=== PATIENT | female | born 1975 | race Caucasian/White ===

== ENCOUNTER → 2018-04-21 | Outpatient (CLI) | payer OTHER ==
--- NOTE | 2018-04-21 13:40 | Diagnostic Imaging Report ---
Indication: Left foot pain AP, oblique, and lateral views of the left foot are obtained. No fracture or acute bony abnormality is seen. There is plantar calcaneal spurring. Joint spaces are unremarkable. Impression: No acute abnormality of left foot. Some plantar calcaneal spurring is noted. Dictated by: Dictated on workstation # [id number]
== END ==
LOC: RAD FS 12:54
PROVIDERS: ATTEND Nurse Practitioner
DX: M79.672 Pain in left foot (principal)
CPT/HCPCS: 73630

== ENCOUNTER → 2021-11-13 | Outpatient (CLI) | payer OTHER ==
[~2021-11-13] MED LIST: ATOR20TA66 PO; ERGO1250 PO; GABA800T10 PO; LISI5TAB20 PO; MELO15TA39 PO; NRT10C PO; OLOP5DRO26 OP; PANT20TA18 PO; TRAM50TA3 PO
== END ==
LOC: PREOP 05:29
PROVIDERS: ATTEND Surgery
DX: Z01.818 Encounter for other preprocedural examination (principal)

== ENCOUNTER 2021-11-20 09:10 | Day surgery (SDC) | payer OTHER ==
[~2021-11-20] VITALS: Ht 154 cm; Wt 77.2 kg
[2021-11-20] VITALS (12 sets, daily range): BP systolic 119–158; BP diastolic 64–80
--- NOTE | 2021-11-20 09:33 | Progress Note-Pre Operative ---
Pre-Operative Progress Note Date of Available H&P: Nov 03, 2021 Date H&P Reviewed: Nov 20, 2021 Time H&P Reviewed: 09:32 History & Physical: H&P Reviewed, Patient Examed, No changes noted Pre-Operative Diagnosis: cholelithiasis ADRIAN ENRIQUEZ DO Nov 20, 2021 09:32
[2021-11-20] MEDS ORDERED: BUP/EPI 0.5% 1:200,000 (MARCAINE) 10ML VIAL IJ ONE ×2 (09:50→10:37)
[2021-11-20] MEDS ORDERED: proPOfol 200 MG/20 ML (DIPRIVAN) VIAL IV ONE (09:55)
[2021-11-20] MEDS ORDERED: ROCURONIUM 10 MG/ML 5 ML SYRINGE IV ONE (09:55)
[2021-11-20] MEDS ORDERED: fentaNYL INJ 100 MCG/2 ML AMP ONE (09:55)
[2021-11-20] MEDS ORDERED: LIDOCAINE PF 2% 5 ML (XYLOCAINE) VIAL ONE (09:55)
[2021-11-20] MEDS ORDERED: MIDAZOLAM 2 MG/2 ML (VERSED) VIAL ONE (09:55)
[2021-11-20] MEDS ORDERED: SEVOFLURANE (ULTANE) 15 ML INHAL SOLN ONE (09:55)
[2021-11-20] MEDS ORDERED: ONDANSETRON 4 MG/2 ML (SDV) Z0FRAN ONE ×2 (09:55)
[2021-11-20] MEDS ORDERED: FAMOTIDINE 20MG/2ML IV (PEPCID) ONE (09:56)
[2021-11-20] MEDS ORDERED: CEFUROXIME 1.5 GM/15 ML (ZINACEF) VIAL ONE (09:56)
[2021-11-20] MEDS ORDERED: NS (IVPB) 100 ML ONE (09:56)
[2021-11-20] MEDS ORDERED: CEFUROXIME INJECTION 1,500 MG in NS (IVPB) 50 ML IV ONE (10:00)
[2021-11-20] MEDS ORDERED: LACTATED RINGERS 1,000 ML IV PRN (10:00)
[2021-11-20] MEDS ORDERED: FAMOTIDINE 20MG/2ML IV (PEPCID) IV ONE (10:00)
[2021-11-20] MEDS ORDERED: ONDANSETRON 4 MG/2 ML (SDV) Z0FRAN IV ONE (10:00)
[2021-11-20] MEDS ORDERED: IOHEXOL 300 MG/ML 30 ML (OMNIPAQUE 300) VIAL INJ ONE (10:45)
[2021-11-20] MEDS ORDERED: GLYCOPYRROLATE 0.2 MG/ML (ROBINUL) 2 ML VIAL ONE (10:58)
[2021-11-20] MEDS ORDERED: NEOSTIGMINE (BLOXIVERZ ) 1 MG/1ML 10 ML VIAL ONE (10:58)
--- NOTE | 2021-11-20 11:17 | Anesthesia-General Post-Op ---
General Patient Condition Mental Status/LOC: Same as Preop Cardiovascular: Satisfactory Nausea/Vomiting: Absent Respiratory: Satisfactory Pain: Controlled Complications: Absent Post Op Complications Complications None Follow Up Care/Instructions Patient Instructions None needed. Anesthesia/Patient Condition Patient Condition Patient is doing well, no complaints, stable vital signs, no apparent adverse anesthesia problems. No complications reported per nursing. MILI LANDAVERDE CRNA Nov 20, 2021 11:17
[2021-11-20] MEDS ORDERED: DOCU-143 PO (11:19)
[2021-11-20] MEDS ORDERED: ACHD5005 PO (11:19)
--- NOTE | 2021-11-20 11:21 | Discharge Inst-Simple/Standard ---
Discharge Inst-Standard Discharge Medications New, Converted or Re-Newed RX: Transmitted to Pharmacy Patient Instructions/Follow Up Plan of Care/Instructions/FU: 2 weeks Adelaida Activity as Tolerated: No Discharge Diet: Regular Diet Other Inst to Patient Follow up Appt: Make appointment for 2 weeks. Instructions: No lifting greater than 10 pounds. No strenuous activity. May shower in 24 hours, no tub bath or soaking. Use incentive spirometer at home as directed. No Smoking Skin/Wound Care: You have special glue over incision, it will fall off on it's own. Symptoms to Report: Appetite Changes, Extremity Discoloration, Numbness/Tingling, Swelling Increased, Bleeding Excessive, Eyesight Changes, Pain Increased, Urine Color Change, Constipation(Persistent), Fever over 101 degree F, Pain/Pressure in chest, Urinating Difficulty, Cough Up/Vomit Blood, Heart Beat Irreg/Pounding, Pain/Pressure in jaw, Vaginal Bleeding Increase, Cramps in feet or legs, Lightheadedness, Pain/Pressure in shoulder, Diarrhea(Persistent), Memory Changes Suddenly, Questions/Concerns, Weight gain consecutive days, Dizziness/Fainting, Nausea/Vomiting, Shortness of Breath, Weight gain over 2 pounds. If eyes or skin turn yellow notify physician. If questions or concerns contact your physician Or seek help at emergency department. ADRIAN ENRIQUEZ DO Nov 20, 2021 11:21
--- NOTE | 2021-11-20 11:22 | Progress Note-Post Operative ---
Post-Operative Progess Note Surgeon (s)/Mechanical Engineering Technician (s) Surgeon ADRIAN ENRIQUEZ DO Mechanical Engineering Technician: Dr. Renae to assist in retraction dissection and closure Pre-Operative Diagnosis cholelithiasis Post-Operative Diagnosis same Procedure & Operative Findings Date of Procedure 11/20/21 Procedure Performed/Findings PROCEDURE: Laparoscopic cholecystectomy with intraoperative cholangiogram. COMPLICATIONS: None. PROCEDURE: The patient was taken to the operating suite and was prepped and draped in sterile fashion. A surgical pause was performed. Just superior to the umbilicus, a 12 mm incision was made. Dissection was taken down to the fascia, which was then scored and grasped with a Katalina and the abdomen was then entered. A 0 Vicryl suture was placed in a sltpug-zm-osern fashion and a Briggs trocar was placed and secured. Pneumoperitoneum was achieved. A 5mm trochar place in the subxyphoid and 2 in the right upper quadrant. The gallbladder was then grasped and elevated. The cystic duct, and cystic artery were then dissected out. Clip was placed on the distal portion of the cystic duct which was then partially transected. An arrow catheter was inserted into the duct. The cholangiogram was then performed. No filing defects and contrast made its way into the duodenum. Catheter removed. Clips were placed on proximal portion of the cystic duct and then the duct was then transected. Clips were placed along the proximal and distal portion of the cystic artery which was then transected. Hook cautery was used to dissect the gallbladder from the gallbladder fossa achieving hemostasis. The gallbladder was placed in an Endobag and removed through the 12 mm trocar site. The abdomen was then reinspected. Copious amounts of irrigation were used to irrigate the abdomen and there were no signs of active bleeding. Hemostasis had been achieved. The 12 mm fascial defect was then closed with 0 Vicryl suture that had been placed in a [id number] fashion. The abdomen was then desufflated, the trocars were removed. The abdomen was then washed and dried. The skin was then closed using 4-0 Monocryl in a subcuticular fashion. The abdomen was washed and dried and Skin Affix was place over incisions. Patient tolerated the procedure well without any complications and was taken to the recovery room in stable condition. Anesthesia Type general Estimated Blood Loss Estimated blood loss (mL): minimal Specimens/Packing Specimens Removed gallbladder ADRIAN ENRIQEUZ DO Nov 20, 2021 11:22
[2021-11-20] MEDS ORDERED: PROMETHAZINE INJ 25 MG/ML (PHENERGAN) AMP IVP ONE (11:30)
[2021-11-20] MEDS ORDERED: MEPERIDINE (DEMEROL) INJ 50 MG/ML IVP ONE (11:30)
[2021-11-20] MEDS ORDERED: morphine INJ 10 MG/ML 1ML (SYR OR VIAL) IVP ONE (11:30)
--- NOTE | 2021-11-20 11:55 | Diagnostic Imaging Report ---
Indication: Cholecystitis. Laparoscopic cholecystectomy. Comparison: None Total fluoroscopy time: 11.3 seconds Total number fluoroscopic images saved: 54 Findings: Multiple intraoperative image intensifier and digital subtraction images of the right upper abdominal quadrant were obtained during laparoscopic cholecystectomy. Images provided show contrast opacifying the intra and extra hepatic biliary ductal systems. No large intraluminal filling defects are seen. Contrast empties into the small bowel, as expected. Impression: 1. Fluoroscopic guidance provided intraoperatively as above. Dictated by: Dictated on workstation # [id number]
[2021-11-20] MEDS: ONDANSETRON 4 MG/2 ML (SDV) Z0FRAN IVP PRN ×2 (12:00→14:48)
[2021-11-20] MEDS ORDERED: HYDROcodone/APAP 5 MG/325 MG (LORTAB) TAB PO ONE (14:45)
[2021-11-20] MEDS ORDERED: HYDROcodone/APAP 5 MG/325 MG (LORTAB) TAB ONE (14:47)
== END 2021-11-20 15:10 | disposition home or self-care (01) ==
LOC: SDC 09:10
PROVIDERS: ATTEND Surgery
DX: K80.10 Calculus of gallbladder with chronic cholecystitis without obstruction (principal); Z28.310 Unvaccinated for COVID-19
CPT/HCPCS: 76000; 84703; 87081; 94664

== ENCOUNTER → 2022-01-01 | Outpatient (CLI) | payer OTHER ==
[~2022-01-01] MED LIST changes: +ACHD5005 PO; +DOCU-143 PO
--- NOTE | 2022-01-01 11:41 | Diagnostic Imaging Report ---
INDICATION: Chronic regional pain syndrome. EXAMINATION: Right hand 01/01/2022. FINDINGS: 2 views of the hand. There is a sclerotic focus along the ulnar border of the 3rd middle phalanx possibly a bone island. This has a benign appearance. There are no fractures or dislocations. Joint spaces maintained. Soft tissues unremarkable. No significant osteopenia noted. IMPRESSION: 1. Chronic findings with no acute osseous abnormality. Dictated by: Dictated on workstation # [id number]
--- NOTE | 2022-01-01 12:21 | Diagnostic Imaging Report ---
INDICATION: Chronic regional pain syndrome. EXAMINATION: Left foot 01/01/2022. FINDINGS: 2 views of the foot There is postoperative change with screws traversing the calcaneus and talus. Incomplete fusion is noted. Plantar calcaneal spurring present. Spurring noted along the dorsum of the midfoot. There is diffuse osteopenia. No acute fractures or dislocations appreciated. IMPRESSION: 1. Chronic and postoperative changes as above with osteopenia noted. No acute fractures identified. Dictated by: Dictated on workstation # [id number]
--- NOTE | 2022-01-01 17:46 | Diagnostic Imaging Report ---
INDICATION: Chronic regional pain syndrome. COMPARISON: None available. TECHNIQUE: Two radiographs of the left knee dated 01/01/2022. FINDINGS: No acute fracture or dislocation. No destructive osseous process. Joint spaces are well maintained. No significant osteophytosis. No significant knee joint effusion. No suspicious radiopaque foreign body. IMPRESSION: Unremarkable examination without acute osseous abnormality. Dictated by: Dictated on workstation # [id number]
== END ==
LOC: RAD 10:08
PROVIDERS: ATTEND Family Medicine
DX: M77.32 Calcaneal spur, left foot (principal); M85.80 Other specified disorders of bone density and structure, unspecified site
CPT/HCPCS: 73120; 73560; 73620

== ENCOUNTER → 2022-04-15 | Outpatient (CLI) | payer OTHER ==
--- NOTE | 2022-04-15 17:48 | Diagnostic Imaging Report ---
CLINICAL INDICATION: Patient with right shoulder injury. EXAM: X-ray of the right shoulder, 4 views. COMPARISON: None. FINDINGS: There is no acute fracture or dislocation. Glenohumeral joints intact. There is no significant abnormality involving the right AC joint. IMPRESSION: Unremarkable x-ray of the right shoulder. Dictated by: Dictated on workstation # [id number]
== END ==
LOC: RAD FS 13:53
PROVIDERS: ATTEND Nurse Practitioner Family
DX: S49.91XA Unspecified injury of right shoulder and upper arm, initial encounter (principal); X58.XXXA Exposure to other specified factors, initial encounter
CPT/HCPCS: 73030